=== PATIENT | male | born 1950 | race Caucasian/White ===

== ENCOUNTER → 2016-09-24 | Outpatient (CLI) | payer MEDICARE ==
--- NOTE | 2016-09-24 13:07 | XR ---
EXAMINATION TYPE: XR foot complete LT DATE OF EXAM: 09/24/2016 CLINICAL HISTORY: Left plantar fasciitis for 2 months. TECHNIQUE: Frontal, lateral, and oblique images of the left foot are obtained. COMPARISON: None FINDINGS: There is no acute fracture/dislocation evident in the left foot. The joint spaces in the left foot appear within normal limits. Some calcification along course of the distal Achilles tendon is present. The overlying soft tissue appears unremarkable. IMPRESSION: No significant inferior calcaneal spurring.
== END | disposition home or self-care (01) ==
LOC: RADXRMAIN 11:56
PROVIDERS: ATTEND Family Medicine
DX: M72.2 Plantar fascial fibromatosis (principal)

== ENCOUNTER → 2017-11-15 | Outpatient (CLI) | payer MEDICARE ==
[2017-11-15 12:44] LABS: Vitamin D 25 Hydroxy 25.2 ng/mL (30.0-100.0)
== END | disposition home or self-care (01) ==
LOC: LABWHC1 06:35
PROVIDERS: ATTEND Psychiatry & Neurology Neurology
DX: M62.89 Other specified disorders of muscle (principal)
CPT/HCPCS: 36415; 82306; 82607; 83735

== ENCOUNTER 2018-11-25 10:20 | Emergency (ER) | payer MEDICARE ==
[2018-11-25 10:29] VITALS: RESP 18
[2018-11-25] MEDS ORDERED: SODIUM CHLORIDE 0.9% 1,000 ML IV STA (10:46)
[2018-11-25] MEDS ORDERED: KETOROLAC 30 MG/ML 1 ML VIAL IVP STA (10:46)
--- NOTE | 2018-11-25 10:59 | ED ---
General Adult HPI - General Chief complaint: Abdominal Pain Stated complaint: Poss kidney stones Time Seen by Provider: 11/25/18 10:29 Source: patient, RN notes reviewed Mode of arrival: ambulatory Limitations: no limitations - History of Present Illness Initial comments: 68-year-old male with a past medical history of kidney stones, coronary artery disease, hyperlipidemia, hypertension, [place] presents to the emergency department for a chief complaint of flank pain. Patient states that on Saturday he started to have left-sided flank pain. States that he was diagnosed with a 5 mm stone in the left ureter at another hospital. States that on Saturday this pain was much better and he saw his primary care provider yesterday and pain had resolved. However today he started to have left-sided flank pain again. Patient then presented to the emergency department. Patient did bring the disc of the CT with him. Patient denies fevers or chills. Patient has no other complaints at this time including shortness of breath, chest pain, abdominal pain, nausea or vomiting, headache, or visual changes. - Related Data Home Medications Medication Instructions Recorded Confirmed Aspirin EC [Ecotrin Low Dose] 81 mg PO DAILY 11/25/18 11/25/18 Glucosamine Sulfate 500 mg PO DAILY@1200 11/25/18 11/25/18 HYDROcodone/APAP 5-325MG [[place] 1 tab PO Q6HR PRN 11/25/18 11/25/18 5-325] Latanoprost [Xalatan 0.005%] 1 drop LEFT EYE HS 11/25/18 11/25/18 Lisinopril [Zestril] 2.5 mg PO DAILY@1200 11/25/18 11/25/18 Metoprolol Tartrate [Lopressor] 25 mg PO BID@1200,1800 11/25/18 11/25/18 Simvastatin [Zocor] 40 mg PO W/SUPPER 11/25/18 11/25/18 Previous Rx's Medication Instructions Recorded Ketorolac [Toradol] 10 mg PO TID #12 tab 11/25/18 Tamsulosin [Flomax] 0.4 mg PO DAILY #10 cap 11/25/18 Allergies Allergy/AdvReac Type Severity Reaction Status Date / Time No Known Allergies Allergy Verified 11/25/18 10:48 Review of Systems ROS Statement: Those systems with pertinent positive or pertinent negative responses have been documented in the HPI. ROS Other: All systems not noted in ROS Statement are negative. Past Medical History Past Medical History: Coronary Artery Disease (CAD), Hyperlipidemia, Hypertension, Myocardial Infarction ([place]) Additional Past Medical History / Comment(s): kidney stones History of Any Multi-Drug Resistant Organisms: None Reported Past Surgical History: Heart Catheterization With Stent Additional Past Surgical History / Comment(s): cataract Past Psychological History: No Psychological Hx Reported Smoking Status: Never smoker Past Alcohol Use History: None Reported Past Drug Use History: None Reported General Exam Limitations: no limitations Course Vital Signs 11/25/18 10:25 Temperature 98.3 F Pulse Rate 62 Respiratory 18 Rate Blood Pressure 159/79 O2 Sat by Pulse 100 Oximetry Medical Decision Making - Medical Decision Making 68-year-old male with a past medical history of kidney stones presents to the emergency department for left flank pain and left groin pain. This started on Saturday but did resolve for the past day. However worsen again today. Vitals are stable. On exam no significant CVA tenderness. No abdominal tenderness. CBC and CMP are unremarkable. Urine shows small blood. As patient had a CT confirming a 5 mm kidney stone 2 days ago x-ray KUB was obtained. This shows an obstructing 4-5 mm calculus in the proximal left ureter at roughly L3 however is less well seen than outside CT. She was given Toradol and had complete resolution of symptoms. Patient tried [place] at home before coming and it did n ot help. As patient's kidney function is normal he will be given Toradol for pain. Also given Flomax and urology follow-up. He will return if he has any worsening symptoms. - Lab Data Result diagrams: 11/25/18 10:50 11/25/18 10:50 Lab Results 11/25/18 11/25/18 11/25/18 Range/Units 10:47 10:50 10:50 WBC 9.4 (3.8-10.6) k/uL RBC 4.53 (4.30-5.90) m/uL Hgb 14.0 (13.0-17.5) gm/dL Hct 40.8 (39.0-53.0) % MCV 90.1 (80.0-100.0) fL MCH 30.8 (25.0-35.0) pg MCHC 34.2 (31.0-37.0) g/dL RDW 12.3 (11.5-15.5) % Plt Count 169 (150-450) k/uL Neutrophils % 82 % Lymphocytes % 10 % Monocytes % 5 % Eosinophils % 2 % Basophils % 0 % Neutrophils # 7.8 H (1.3-7.7) k/uL Lymphocytes # 0.9 L (1.0-4.8) k/uL Monocytes # 0.4 (0-1.0) k/uL Eosinophils # 0.2 (0-0.7) k/uL Basophils # 0.0 (0-0.2) k/uL Sodium 139 (137-145) mmol/L Potassium 4.0 (3.5-5.1) mmol/L Chloride 104 (98-107) mmol/L Carbon Dioxide 26 (22-30) mmol/L Anion Gap 9 mmol/L BUN 16 (9-20) mg/dL Creatinine 1.00 (0.66-1.25) mg/dL Est GFR (CKD-EPI)AfAm 88 (>60 ml/min/1.73 sqM) Est GFR (CKD-EPI)NonAf 76 (>60 ml/min/1.73 sqM) Glucose 107 H (74-99) mg/dL Calcium 9.1 (8.4-10.2) mg/dL Total Bilirubin 0.7 (0.2-1.3) mg/dL AST 17 (17-59) U/L ALT 20 L (21-72) U/L Alkaline Phosphatase 90 (38-126) U/L Total Protein 6.8 (6.3-8.2) g/dL Albumin 3.9 (3.5-5.0) g/dL Urine Color Yellow Urine Appearance Clear (Clear) Urine pH 7.0 (5.0-8.0) Ur Specific [place] 1.014 (1.001-1.035) Urine Protein Negative (Negative) Urine Glucose (UA) Negative (Negative) Urine Ketones Trace H (Negative) Urine Blood Small H (Negative) Urine Nitrite Negative (Negative) Urine Bilirubin Negative (Negative) Urine Urobilinogen <2.0 (<2.0) mg/dL Ur Leukocyte Esterase Negative (Negative) Urine RBC 1 (0-5) /hpf Urine WBC 1 (0-5) /hpf Disposition Clinical Impression: Ureterolithiasis Disposition: HOME SELF-CARE Condition: Good Instructions (If sedation given, give patient instructions): Kidney Stones (ED) Additional Instructions: Please take Toradol and [place] for pain. Please take Flomax as directed. Fol low-up with primary care in 1-2 days. Return to the emergency department if you have any worsening symptoms. Prescriptions: Tamsulosin [Flomax] 0.4 mg PO DAILY #10 cap Ketorolac [Toradol] 10 mg PO TID #12 tab Is patient prescribed a controlled substance at d/c from ED?: No Referrals: Shreya Mejia MD [Primary Care Provider] - 1-2 days Matias Hoover MD [STAFF PHYSICIAN] - 1-2 days Time of Disposition: 12:21
[2018-11-25 11:06] LABS: Basophils % (A) 0 %; Eosinophils # (A) 0.2 k/uL (0-0.7); Eosinophils % (A) 2 %; HCT 40.8 % (39.0-53.0); Lymphocytes # (A) 0.9 k/uL (1.0-4.8); Lymphocytes % (A) 10 %; MCH 30.8 pg (25.0-35.0); MCHC 34.2 g/dL (31.0-37.0); MCV 90.1 fL (80.0-100.0); Mean Platelet Volume 6.4; Monocytes # (A) 0.4 k/uL (0-1.0); Monocytes % (A) 5 %; Neutrophils # (A) 7.8 k/uL (1.3-7.7); Neutrophils % (A) 82 %; Platelet Count 169 k/uL (150-450); RBC 4.53 m/uL (4.30-5.90); RDW 12.3 % (11.5-15.5); WBC 9.4 k/uL (3.8-10.6)
[2018-11-25 11:17] LABS: Appearance,Urine Clear (Clear); Bilirubin,Urine Negative (Negative); Blood,Urine Small (Negative); Color,Urine Yellow; Glucose,Urine (UA) Negative (Negative); Ketones,Urine Trace (Negative); Leukocyte Esterase,Urine Negative (Negative); Nitrite,Urine Negative (Negative); Protein,Urine Negative (Negative); RBC,Urine 1 /hpf (0-5); Specific Gravity,Urine 1.014 (1.001-1.035); Urobilinogen,Urine <2.0 mg/dL (<2.0); WBC,Urine 1 /hpf (0-5)
[2018-11-25 11:17] LABS: Albumin 3.9 g/dL (3.5-5.0); Calcium 9.1 mg/dL (8.4-10.2); Total Bilirubin 0.7 mg/dL (0.2-1.3); Total Protein 6.8 g/dL (6.3-8.2)
--- NOTE | 2018-11-25 11:24 | XR ---
EXAMINATION TYPE: XR KUB DATE OF EXAM: 11/25/2018 11:19 AM CLINICAL HISTORY: Left-sided flank pain since Saturday. History of kidney stones. TECHNIQUE: Two Upright KUB images of the abdomen are obtained. COMPARISON: Outside CT from 3 days ago.. FINDINGS: 2 calculi lower pole level left kidney measuring up to 6 mm in size are redemonstrated. The obstructing 4 to 5 mm calculus proximal left ureter at roughly L3 level is less well seen on x-ray v ersus outside CT. Overall nonobstructive bowel gas pattern. Visualized osseous structures are intact. IMPRESSION: As above.
[2018-11-25 12:38] VITALS: BP 130/65; PULSE 60; TEMP 97.9
== END 2018-11-25 12:35 | disposition home or self-care (01) ==
LOC: EC 10:20
DX: N20.1 Calculus of ureter (principal); I25.10 Atherosclerotic heart disease of native coronary artery without angina pectoris; I25.2 Old myocardial infarction; I10 Essential (primary) hypertension; E78.5 Hyperlipidemia, unspecified; Z79.82 Long term (current) use of aspirin; Z79.899 Other long term (current) drug therapy; Z95.5 Presence of coronary angioplasty implant and graft
CPT/HCPCS: 99284; 96374; 96361; 36415; 80053; 85025; 81001; 74018; J1885

== ENCOUNTER 2018-12-06 09:33 | Emergency (ER) | payer MEDICARE ==
[2018-12-06] MEDS ORDERED: ACETAMINOPHEN TAB 500 MG TAB PO STA (09:57)
[2018-12-06] MEDS ORDERED: SODIUM CHLORIDE 0.9% 500 ML 500 ML IV SCH (10:00)
[2018-12-06 10:09] LABS: Appearance,Urine Cloudy (Clear); Bacteria,Urine Many /hpf; Bilirubin,Urine Negative (Negative); Blood,Urine Moderate (Negative); Color,Urine Yellow; Glucose,Urine (UA) Negative (Negative); Ketones,Urine Negative (Negative); Leukocyte Esterase,Urine Large (Negative); Mucus,Urine Rare /hpf; Nitrite,Urine Positive (Negative); Protein,Urine 2+ (Negative); RBC,Urine 63 /hpf (0-5); WBC,Urine >182 /hpf (0-5)
[2018-12-06 10:26] LABS: Basophils % (A) 0 %; Eosinophils # (A) 0.1 k/uL (0-0.7); Eosinophils % (A) 1 %; HCT 33.8 % (39.0-53.0); HGB 11.6 gm/dL (13.0-17.5); Lymphocytes # (A) 0.8 k/uL (1.0-4.8); Lymphocytes % (A) 6 %; MCH 31.1 pg (25.0-35.0); MCHC 34.2 g/dL (31.0-37.0); MCV 90.9 fL (80.0-100.0); Mean Platelet Volume 7.1; Monocytes # (A) 0.8 k/uL (0-1.0); Monocytes % (A) 6 %; Neutrophils # (A) 11.3 k/uL (1.3-7.7); Neutrophils % (A) 86 %; Platelet Count 235 k/uL (150-450); RBC 3.72 m/uL (4.30-5.90); RDW 12.8 % (11.5-15.5); WBC 13.2 k/uL (3.8-10.6)
[2018-12-06 10:33] LABS: Calcium 8.4 mg/dL (8.4-10.2); Potassium 3.3 mmol/L (3.5-5.1); Total Bilirubin 0.7 mg/dL (0.2-1.3)
[2018-12-06] MEDS ORDERED: cefTRIAXone IN SWFI 1,000 MG/10 ML SYRINGE IVP STA (11:19)
--- NOTE | 2018-12-06 11:20 | ED ---
General Adult HPI - General Source: patient, RN notes reviewed Mode of arrival: ambulatory Limitations: no limitations <Ismael Campuzano - Last Filed: 12/06/18 12:38> <Josselin Lemos - Last Filed: 12/09/18 02:43> - General Chief complaint: Recheck/Abnormal Lab/Rx Stated complaint: Fever Time Seen by Provider: 12/06/18 09:44 - History of Present Illness Initial comments: 68-year-old male with a past medical history of CAD, hyperlipidemia, hypertension, [place], kidney stones presents to the emergency department for a chief complaint of fever. Patient states he was diagnosed with kidney stones about 2 weeks ago. At that time he was found to have a 5 mm stone in the left ureter. Patient states that on Saturday he had removal of the kidney stones and a stent placed in the left ureter by Dr. Beaulieu. States that he has had dysuria since that time as well. States today he checked his temperature and it was 102. States he called his urologist in the [employer] physician told him to come to the emergency department.Patient has no other complaints at this time including shortness of breath, chest pain, abdominal pain, nausea or vomiting, headache, or visual changes. (Ismael Campuzano) - Related Data Home Medications Medication Instructions Recorded Confirmed Aspirin EC [Ecotrin Low Dose] 81 mg PO DAILY 11/25/18 12/06/18 Glucosamine Sulfate 500 mg PO DAILY@1200 11/25/18 12/06/18 Latanoprost [Xalatan 0.005%] 1 drop LEFT EYE HS 11/25/18 12/06/18 Lisinopril [Zestril] 2.5 mg PO DAILY@1200 11/25/18 12/06/18 Metoprolol Tartrate [Lopressor] 25 mg PO BID@1200,1800 11/25/18 12/06/18 Simvastatin [Zocor] 40 mg PO W/SUPPER 11/25/18 12/06/18 Previous Rx's Medication Instructions Recorded Amoxicillin/Potassium Clav 1 tab PO Q12HR #20 tab 12/06/18 [Augmentin 875-125 Tablet] Allergies Allergy/AdvReac Type Severity Reaction Status Date / Time No Known Allergies Allergy Verified 12/06/18 10:19 Review of Systems ROS Other: All systems not noted in ROS Statement are negative. <Ismael Campuzano - Last Filed: 12/06/18 12:38> ROS Other: All systems not noted in ROS Statement are negative. <Josselin Lemos Ziggy - Last Filed: 12/09/18 02:43> ROS Statement: Those systems with pertinent positive or pertinent negative responses have been documented in the HPI. Past Medical History Past Medical History: Coronary Artery Disease (CAD), Hyperlipidemia, Hypertension, Myocardial Infarction ([place]) Additional Past Medical History / Comment(s): kidney stones History of Any Multi-Drug Resistant Organisms: None Reported Past Surgical History: Heart Catheterization With Stent Additional Past Surgical History / Comment(s): cataract, urinary stent Past Psychological History: No Psychological Hx Reported Smoking Status: Never smoker Past Alcohol Use History: None Reported Past Drug Use History: None Reported <Ismael Campuzano P - Last Filed: 12/06/18 12:38> General Exam Limitations: no limitations General appearance: alert, in no apparent distress Head exam: Present: atraumatic, normocephalic, normal inspection Eye exam: Present: normal appearance, PERRL, EOMI. Absent: scleral icterus, conjunctival injection, periorbital swelling ENT exam: Present: normal exam, mucous membranes moist Neck exam: Present: normal inspection, full ROM. Absent: tenderness, meningismus, lymphadenopathy Respiratory exam: Present: normal lung sounds bilaterally. Absent: respiratory distress, wheezes, rales, rhonchi, stridor Cardiovascular Exam: Present: regular rate, normal rhythm, normal heart sounds. Absent: systolic murmur, diastolic murmur, rubs, gallop, clicks GI/Abdominal exam: Present: soft, normal bowel sounds. Absent: distended, tenderness, guarding, rebound, rigid Back exam: Absent: CVA tenderness (R), CVA tenderness (L) Neurological exam: Present: alert Psychiatric exam: Present: normal affect, normal mood <Ismael Campuzano - Last Filed: 12/06/18 12:38> Course Vital Signs 12/06/18 12/06/18 12/06/18 09:34 10:10 10:56 Temperature 101.2 F H 102.7 F H Pulse Rate 115 H 86 72 Respiratory 18 16 16 Rate Blood Pressure 123/78 117/71 134/68 O2 Sat by Pulse 96 94 L 94 L Oximetry 12/06/18 12/06/18 11:41 12:55 Temperature 100.1 F H 101.2 F H Pulse Rate 87 81 Respiratory 18 16 Rate Blood Pressure 119/61 128/66 O2 Sat by Pulse 94 L 94 L Oximetry Medical Decision Making - Lab Data Result diagrams: 12/06/18 10:10 12/06/18 10:10 <Ismael Campuzano - Last Filed: 12/06/18 12:38> - Lab Data Result diagrams: 12/06/18 10:10 12/06/18 10:10 <Josselin Lemos - Last Filed: 12/09/18 02:43> - Medical Decision Making 68-year-old male presents to the emergency department for a chief complaint of fever. Patient had a stent placed in the left ureter about 5 days ago. Shortly afterwards started having chills and dysuria. On exam patient is well- appearing. No abdominal pain or CVA tenderness. Vitals are stable however patient is febrile. He was given Motrin and Tylenol and this did improve somewhat. She was found to have urinary tract infection with greater than 182 white blood cells. White count 13.2 which is likely secondary to this infection. Rocephin given. Hemoglobin found to be 11.6 which is decreased from previous hemoglobin of 14. Therefore patient will follow-up for this and have this repeated next week. Denies any rectal bleeding. CMP shows a potassium at 3.3, this was orally replaced. X-ray of the abdomen shows left-sided ureteral stent demonstrated. Nonobstructive bowel gas pattern. Dr. Lemos evaluated patient and spoke to Dr. Heck about this case. Recommends discharge home with Augmentin. Patient is comfortable with this. He will follow up on saturday As directed. He will return if he has any worsening symptoms. (Ismael Campuzano) I was available for consultation in the emergency department. The history and physical exam were done by the midlevel provider. I was consulted for this patient's care. I reviewed the case midlevel provider and based on their presentation of the patient, I agree with the assessment, medical decision making and plan of care as documented. Chart was dictated using [employer] software. Attempts were made to correct any dictation errors however some typographical errors may persist. (Josselin Lemos) - Lab Data Lab Results 12/06/18 12/06/18 12/06/18 Range/Units 09:59 10:10 10:10 WBC 13.2 H (3.8-10.6) k/uL RBC 3.72 L (4.30-5.90) m/uL Hgb 11.6 L (13.0-17.5) gm/dL Hct 33.8 L (39.0-53.0) % MCV 90.9 (80.0-100.0) fL MCH 31.1 (25.0-35.0) pg MCHC 34.2 (31.0-37.0) g/dL RDW 12.8 (11.5-15.5) % Plt Count 235 (150-450) k/uL Neutrophils % 86 % Lymphocytes % 6 % Monocytes % 6 % Eosinophils % 1 % Basophils % 0 % Neutrophils # 11.3 H (1.3-7.7) k/uL Lymphocytes # 0.8 L (1.0-4.8) k/uL Monocytes # 0.8 (0-1.0) k/uL Eosinophils # 0.1 (0-0.7) k/uL Basophils # 0.0 (0-0.2) k/uL Sodium 137 (137-145) mmol/L Potassium 3.3 L (3.5-5.1) mmol/L Chloride 104 (98-107) mmol/L Carbon Dioxide 24 (22-30) mmol/L Anion Gap 9 mmol/L BUN 13 (9-20) mg/dL Creatinine 1.14 (0.66-1.25) mg/dL Est GFR (CKD-EPI)AfAm 75 (>60 ml/min/1.73 sqM) Est GFR (CKD-EPI)NonAf 65 (>60 ml/min/1.73 sqM) Glucose 169 H (74-99) mg/dL Plasma Lactic Acid Meet (0.7-2.0) mmol/L Calcium 8.4 (8.4-10.2) mg/dL Total Bilirubin 0.7 (0.2-1.3) mg/dL AST 14 L (17-59) U/L ALT 18 L (21-72) U/L Alkaline Phosphatase 78 (38-126) U/L Total Protein 6.0 L (6.3-8.2) g/dL Albumin 3.0 L (3.5-5.0) g/dL Urine Color Yellow Urine Appearance Cloudy (Clear) Urine pH 6.0 (5.0-8.0) Ur Specific [place] 1.020 (1.001-1.035) Urine Protein 2+ H (Negative) Urine Glucose (UA) Negative (Negative) Urine Ketones Negative (Negative) Urine Blood Moderate H (Negative) Urine Nitrite Positive (Negative) Urine Bilirubin Negative (Negative) Urine Urobilinogen 2.0 (<2.0) mg/dL Ur Leukocyte Esterase Large H (Negative) Urine RBC 63 H (0-5) /hpf Urine WBC >182 H (0-5) /hpf Urine WBC Clumps Many H (None) /hpf Urine Bacteria Many H (None) /hpf Urine Mucus Rare H (None) /hpf 12/06/18 Range/Units 10:10 WBC (3.8-10.6) k/uL RBC (4.30-5.90) m/uL Hgb (13.0-17.5) gm/dL Hct (39.0-53.0) % MCV (80.0-100.0) fL MCH (25.0-35.0) pg MCHC (31.0-37.0) g/dL RDW (11.5-15.5) % Plt Count (150-450) k/uL Neutrophils % % Lymphocytes % % Monocytes % % Eosinophils % % Basophils % % Neutrophils # (1.3-7.7) k/uL Lymphocytes # (1.0-4.8) k/uL Monocytes # (0-1.0) k/uL Eosinophils # (0-0.7) k/uL Basophils # (0-0.2) k/uL Sodium (137-145) mmol/L Potassium (3.5-5.1) mmol/L Chloride (98-107) mmol/L Carbon Dioxide (22-30) mmol/L Anion Gap mmol/L BUN (9-20) mg/dL Creatinine (0.66-1.25) mg/dL Est GFR (CKD-EPI)AfAm (>60 ml/min/1.73 sqM) Est GFR (CKD-EPI)NonAf (>60 ml/min/1.73 sqM) Glucose (74-99) mg/dL Plasma Lactic Acid Meet 1.3 (0.7-2.0) mmol/L Calcium (8.4-10.2) mg/dL Total Bilirubin (0.2-1.3) mg/dL AST (17-59) U/L ALT (21-72) U/L Alkaline Phosphatase (38-126) U/L Total Protein (6.3-8.2) g/dL Albumin (3.5-5.0) g/dL Urine Color Urine Appearance (Clear) Urine pH (5.0-8.0) Ur Specific [place] (1.001-1.035) Urine Protein (Negative) Urine Glucose (UA) (Negative) Urine Ketones (Negative) Urine Blood (Negative) Urine Nitrite (Negative) Urine Bilirubin (Negative) Urine Urobilinogen (<2.0) mg/dL Ur Leukocyte Esterase (Negative) Urine RBC (0-5) /hpf Urine WBC (0-5) /hpf Urine WBC Clumps (None) /hpf Urine Bacteria (None) /hpf Urine Mucus (None) /hpf Disposition Is patient prescribed a controlled substance at d/c from ED?: No Time of Disposition: 12:39 <Ismael Campuzano P - Last Filed: 12/06/18 12:38> <Josselin Lemos - Last Filed: 12/09/18 02:43> Clinical Impression: Urinary tract infection, Fever Disposition: HOME SELF-CARE Condition: Good Instructions (If sedation given, give patient instructions): Urinary Tract Infection in Men (ED), Fever in Adults (ED) Additional Instructions: Please alternate Motrin and Tylenol for fever. Please take Augmentin as directed. Follow-up with urology on Saturday. Return here to the emergency department if you have any worsening symptoms. Prescriptions: Amoxicillin/Potassium Clav [Augmentin 875-125 Tablet] 1 tab PO Q12HR #20 tab Referrals: Shreya Mejia MD [Primary Care Provider] - 1-2 days
[2018-12-06] MEDS ORDERED: POTASSIUM CHLORIDE ER 20 MEQ TAB.ER PO STA (11:33)
--- NOTE | 2018-12-06 12:05 | XR ---
EXAMINATION TYPE: XR KUB DATE OF EXAM: 12/06/2018 CLINICAL DATA: 68-year-old male recent lithotripsy, fever,, [facility] COMPARISON: 11/27/2018 FINDINGS: Mild patchy left basilar opacities. Small air-fluid remaining abdomen. No abnormal clinical findings. Left-sided ureteral stent is demons trated. In the left side of the pelvis. IMPRESSION: 1. Some patchy atelectasis versus infiltrate at the left base. 2. Small air-fluid levels within the mid abdomen could represent regional ileus or enteritis. Overall nonobstructive bowel gas pattern. 3. Left-sided ureteral stent demonstrated.
[2018-12-06 12:58] VITALS: BP 128/66; PULSE 81; RESP 16; TEMP 101.2
== END 2018-12-06 12:55 | disposition home or self-care (01) ==
LOC: EC 09:33
DX: N39.0 Urinary tract infection, site not specified (principal); I25.10 Atherosclerotic heart disease of native coronary artery without angina pectoris; E78.5 Hyperlipidemia, unspecified; I10 Essential (primary) hypertension; I25.2 Old myocardial infarction; Z79.82 Long term (current) use of aspirin; Z79.899 Other long term (current) drug therapy; Z96.0 Presence of urogenital implants; Z87.442 Personal history of urinary calculi; Z95.5 Presence of coronary angioplasty implant and graft
CPT/HCPCS: 36415; 80053; 83605; 85025; 81001; 87040; 87086; 74018; 99283; 96374; J0696; 87077; 87186

== ENCOUNTER → 2023-02-20 | Outpatient (CLI) | payer MEDICARE ==
[2023-02-20 13:46] LABS: Basophils # (A) 0.05 X 10*3/uL (0.00-0.10); Basophils % (A) 0.7 %; Eosinophils % (A) 5.5 %; HCT 41.3 % (39.6-50.0); HGB 13.9 g/dL (13.0-17.0); Lymphocytes # (A) 1.87 X 10*3/uL (0.90-5.00); Lymphocytes % (A) 25.9 %; MCH 31.6 pg (27.0-32.0); MCHC 33.7 g/dL (32.0-37.0); MCV 93.9 FL (80.0-97.0); Mean Platelet Volume 9.7 FL (9.5-12.2); Monocytes # (A) 0.85 X 10*3/uL (0.20-1.00); Monocytes % (A) 11.8 %; NRBC Per 100 WBC 0 X 10*3/uL (0.00-0.01); Neutrophils # (A) 4.05 X 10*3/uL (1.80-7.70); Platelet Count 188 X 10*3/uL (140-440); RDW 12.2 % (11.5-14.5); WBC 7.23 X 10*3/uL (4.50-10.00)
[2023-02-20 14:15] LABS: ALT 22 U/L (10-49); AST 18 U/L (14-35); Albumin 4.3 g/dL (3.8-4.9); Albumin/Globulin Ratio 1.79 Ratio (1.60-3.17); Alkaline Phosphatase 79 U/L (41-126); BUN/Creat Ratio 15.36 Ratio (12.00-20.00); Blood Urea Nitrogen 16.9 mg/dL (9.0-27.0); Calcium 9.5 mg/dL (8.7-10.3); Carbon Dioxide 24.4 mmol/L (21.6-31.8); Chloride 104 mmol/L (96-109); Globulin 2.4 g/dL (1.6-3.3); Glucose 98 mg/dL (70-110); Potassium 4.3 mmol/L (3.5-5.5); Sodium 140 mmol/L (135-145); Total Bilirubin 0.4 mg/dL (0.3-1.2); Total Protein 6.7 g/dL (6.2-8.2)
== END | disposition home or self-care (01) ==
LOC: LABWHC1 07:04
PROVIDERS: ATTEND Family Medicine
DX: R53.83 Other fatigue (principal)
CPT/HCPCS: 36415; 80053; 82306; 82607; 84443; 85025; 87502; 87635

== ENCOUNTER → 2024-01-16 | Outpatient (CLI) | payer MEDICARE ==
[2024-01-16 10:32] LABS: ALT 15 U/L (10-49); AST 16 U/L (14-35); Chol/HDL Ratio 3.31 Ratio; LDL Cholesterol,Calculated 69.3 mg/dL (0.0-131.0); VLDL Calculation 15.82 mg/dL (5.00-40.00)
== END | disposition home or self-care (01) ==
LOC: LABWHC1 07:01
PROVIDERS: ATTEND Internal Medicine Interventional Cardiology
DX: E78.2 Mixed hyperlipidemia (principal)
CPT/HCPCS: 36415; 80061; 84450; 84460

== ENCOUNTER → 2024-07-16 | Outpatient (CLI) | payer MEDICARE ==
[2024-07-16 10:30] LABS: ALT 11 U/L (10-49); AST 15 U/L (14-35); Chol/HDL Ratio 3.34 Ratio; VLDL Calculation 16.58 mg/dL (5.00-40.00)
== END | disposition home or self-care (01) ==
LOC: LABWHC1 07:09
PROVIDERS: ATTEND Internal Medicine Interventional Cardiology
DX: E78.2 Mixed hyperlipidemia (principal)
CPT/HCPCS: 36415; 80061; 84450; 84460